=== PATIENT | male | born 1960 | race Caucasian/White ===

== ENCOUNTER 2017-02-19 21:15 | Emergency (ER) | payer OTHER ==
[2017-02-19] MEDS ORDERED: Sodium Chloride 0.9% 10 ML Syringe FLUSH PRN (21:22)
[2017-02-19] MEDS ORDERED: Albuterol/Ipratropium 3.0-0.5 MG/3 ML Neb Soln NEB ONE (21:23)
[2017-02-19] MEDS ORDERED: Albuterol 8 GM Inhaler INH ONE (22:55)
[2017-02-19] MEDS ORDERED: Azithromycin 250 MG Tab PO ONE (22:55)
[2017-02-19] MEDS ORDERED: predniSONE 20 MG Tab PO ONE (22:55)
[2017-02-19 23:07] VITALS: BP 133/66
--- NOTE | 2017-02-20 01:32 | ER ---
DATE SEEN: 02/19/2017 REASON FOR VISIT: Difficulty breathing. HISTORY OF PRESENT ILLNESS: This is a 56-year-old male complaining of difficulty breathing for 2 days, started with a cold and sore throat and nasal congestion 2 days ago, and then progressively got worse to the point, where he is unable to breathe. He has a history of COPD, CAD, and hypertension, previously stable. ALLERGIES: Please see the nurse's notes. REVIEW OF SYSTEMS: He complains of neck, back, chest pain, nasal congestion, and some headache. SOCIAL HISTORY: Quit smoking years ago. MEDICATIONS: Please see the nurse's notes. PHYSICAL EXAMINATION: VITAL SIGNS: His oxygenation is 98% on room air. He has a blood pressure of 133/74, temp 99.8. EARS, NOSE, AND THROAT: Negative. HEAD: Normal size. NECK: Supple. CARDIOVASCULAR: Normal. RESPIRATORY SYSTEM: He has use of accessory muscles of the neck and aspiration, and he also has diminished breath sounds on both sides. LABS: Troponin, D-dimer, CBC, basic profile were negative. Chest x-ray was normal. EKG; mild ST elevation in aVL, V2-V6, but not significant. IMPRESSION: Chronic obstructive pulmonary disease exacerbation. TREATMENT: Z-Torrey, prednisone 10 mg p.o. b.i.d., and albuterol to use as needed. I gave him 1 DuoNeb and he states that his symptoms are much better. TIME SEEN: 2255 hours. /[id number] ALESSANDRO/STEPHANIE
--- NOTE | 2017-02-22 11:35 | CR ---
INDICATION: Shortness of breath. CHEST, AP UPRIGHT: COMPARISON: 07/13/2013. Faint nodularity over the costophrenic angle on the right which is seen on the previous examination, likely chronic. Lung lucero show no infiltrates, effusions, or masses identified at this time. The heart is mildly prominent with no pulmonary vascularity prominence. Overall appearance not significantly changed when compared to the previous examination. IMPRESSION: No acute abnormalities identified. MTDD
== END 2017-02-19 23:10 | disposition home or self-care (01) ==
LOC: FB.ED 21:15
DX: J44.1 Chronic obstructive pulmonary disease with (acute) exacerbation (principal)
CPT/HCPCS: 36415; 71010; 80048; 82550; 82553; 83880; 84484; 85025; 85379; 93005; 94664; 99285; A9270; J7620

== ENCOUNTER 2020-06-21 13:48 | Observation (INO) | payer OTHER ==
--- NOTE | 2020-06-21 14:08 | EDM.PDOC ---
ED HPI GENERAL MEDICAL PROBLEM - General Stated Complaint: FELL OFF LADDER Time Seen by Provider: 06/21/20 14:05 Source of Information: Reports: Patient History Limitations: Reports: No Limitations - History of Present Illness INITIAL COMMENTS - FREE TEXT/NARRATIVE: 59-year-old male who reports he was about 5 or 6 feet up on a ladder and was putting something up and the ladder came out from under him and he fell on his right side. He did not hit his head. There was no loss of consciousness. He did try to catch himself with his hand and he has injuries to this area. He also has pain along his entire right lateral chest and flank area. He also has some right upper abdominal discomfort as well. The pain is sharp and stabbing type pain and with movement it goes up to a 10/10. The pain does not radiate. It is worse with deep breathing as well. He states that he feels somewhat short of breath but he is speaking normally and does not appear to be in any overt respiratory distress. He has no posterior neck pain he does have some pain along his right thoracic back. He has scrapes to his left hand and a scrape over his right anterior trunk this occurred approximately 1:30 PM today. He presents to the emergency department via private vehicle. There are no other associated signs or symptoms. There are no other modifying factors. Onset: Today (1:30 PM) Duration: Constant Location: Reports: Chest, Abdomen, Back, Upper Extremity, Left (Left hand and thumb) Quality: Reports: Sharp, Throbbing Severity: Moderate (to severe) Improves with: Reports: Immobilization, Rest Worsens with: Reports: Breathing, Other (Palpation), Movement Context: Reports: Trauma Associated Symptoms: Reports: No Other Symptoms Treatments INBOUND CALL CENTER REPRESENTATIVE: Reports: Other (see below) (Nothing.) R lateral ribs, L thumb Pain Score (Numeric/FACES): 8 - Related Data Allergies Allergy/AdvReac Type Severity Reaction Status Date / Time budesonide Allergy Rash Verified 06/21/20 14:36 lisinopril Allergy Rash Verified 06/21/20 14:36 Penicillins Allergy Chest Verified 06/21/20 14:36 Presssure Home Meds: Home Meds Aspirin [[place] Aspirin] 81 mg PO DAILY 07/13/13 [History] Metoprolol Tartrate 25 mg PO BID 10/15/14 [History] Acetaminophen [Tylenol Extra Strength] 1,000 mg PO QID PRN 09/11/18 [History] metFORMIN [Glucophage] 500 mg PO BID 09/11/18 [History] Ipratropium/Albuterol Sulfate [Combivent Respimat Inhal [place]] 4 gm IH QID PRN #1 aer.w.adap 09/13/18 [Rx] Isosorbide Mononitrate [Imdur] 30 mg DAILY 06/21/20 [History] Rosuvastatin [Crestor] 40 mg PO DAILY 06/21/20 [History] Past Medical History Cardiovascular History: Reports: Heart Murmur, High Cholesterol, Hypertension, [place], Stents Respiratory History: Reports: COPD, Pneumonia, Recurrent Musculoskeletal History: Reports: Arthritis, Back Pain, Chronic, Gout Neurological History: Reports: Migraines Psychiatric History: Reports: ADHD Endocrine/Metabolic History: Reports: Diabetes, Type II - Infectious Disease History Infectious Disease History: Reports: Chicken Pox - Past Surgical History HEENT Surgical History: Reports: Oral Surgery Cardiovascular Surgical History: Reports: Coronary Artery Stent, Percutaneous Transluminal Angioplasty GI Surgical History: Reports: Colonoscopy Musculoskeletal Surgical History: Reports: Arthroscopic Knee (Right knee), Shoulder Surgery (Bilateral) Social & Family History - Tobacco Use Tobacco Use Status *Q: Former Tobacco User (Quit in 2002) - Caffeine Use Caffeine Use: Reports: Coffee, Soda - Living Situation & Occupation 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[employer]) ED ROS GENERAL - Review of Systems Review Of Systems: See Below Constitutional: Reports: No Symptoms HEENT: Reports: No Symptoms Respiratory: Reports: Shortness of Breath, Pleuritic Chest Pain Cardiovascular: Reports: Chest Pain (Right sided) GI/Abdominal: Reports: Abdominal Pain (Right upper quadrant and flank) : Reports: No Symptoms Musculoskeletal: Reports: Hand Pain (Left thumb and hand pain) Skin: Reports: Wound (Abrasions on left hand) Neurological: Reports: No Symptoms Hematologic/Lymphatic: Reports: No Symptoms Immunologic: Reports: Other (Last tetanus immunization was greater than 5 years ago. He will be given a Tdap immunization today.) ED EXAM, GENERAL - Physical Exam Exam: See Below Exam Limited By: No Limitations General Appearance: Alert, WD/WN, Moderate Distress Eye Exam: Bilateral Eye: EOMI, Normal Inspection, PERRL Ears: Normal External Exam, Hearing Grossly Normal Ear Exam: Bilateral Ear: Auricle Normal Nose: Normal Inspection, Normal Mucosa, No Blood Throat/Mouth: Normal Voice, No Airway Compromise Head: Atraumatic, Normocephalic Neck: Normal Inspection, Supple, Non-Tender, Full Range of Motion Respiratory/Chest: No Respiratory Distress, Lungs Clear, Normal Breath Sounds, No Accessory Muscle Use, Other (Pain along right lateral chest. No crepitus. No subcutaneous emphysema.) Cardiovascular: Normal Peripheral Pulses, No Murmur Peripheral Pulses: 2+: Radial (L), Radial (R), Dorsalis Pedis (L), Dorsalis Pedis (R) GI/Abdominal: Normal Bowel Sounds, Soft, No Mass, Tender (And right upper quadrant and flank along the costal margin.), Other (Abrasion on the right upper quadrant area abdominal wall) Back Exam: Paraspinal Tenderness (On the right thoracic area). No: Vertebral Tenderness Extremities: No Pedal Edema, Normal Capillary Refill, Other (Tenderness over the left thumb and radial hand with no deformity noted. There are abrasions to the middle finger and thumb.) Neurological: Alert, Oriented, CN II-XII Intact, Normal Cognition, No Motor/Sensory Deficits Psychiatric: Normal Affect Skin Exam: Warm, Dry, Normal Color, No Rash, Wound/Incision (Abrasions as above on left hand and abdominal wall.) #1 Interpretation EKG Date: 06/21/20 Time: 14:54 Rhythm: NSR Rate (Beats/Min): 64 Commerce: LAD-Left Commerce Deviation P-Wave: Present QRS: Normal ST-T: Other (Early repolarization) QT: Normal Comparison: NA - No Prior EKG (No change from EKG performed on 02/19/2017.) Course - Vital Signs Last Recorded V/S: Last Vital Signs Temp 36.5 C 06/21/20 13:48 Pulse 78 06/21/20 13:48 Resp 20 06/21/20 13:48 BP 139/68 06/21/20 13:48 Pulse Ox 97 06/21/20 13:48 - Orders/Labs/Meds Orders: Active Orders 24 hr Category Date Time Status Admission Status [Patient Status] [ADT] Routine ADT 06/21/20 17:06 Active Cardiac Monitoring [RC] .As Directed Care 06/21/20 17:06 Active EKG Documentation Completion [RC] ASDIRECTED Care 06/21/20 14:30 Active Vaccines to be Administered [RC] PER UNIT ROUTINE Care 06/21/20 14:25 Active Chest 1V Frontal [CR] Stat Exams 06/21/20 14:20 Taken Chest Abdomen Pelvis w Cont [CT] Stat Exams 06/21/20 14:34 Taken Hand Comp Min 3V Lt [CR] Stat Exams 06/21/20 14:20 Taken CORONAVIRUS COVID-19 TREVOR [MOLEC] Stat Lab 06/21/20 16:10 Received PATIENT RETYPE [BBK] Routine Lab 06/21/20 13:55 Results TYPE AND SCREEN [BBK] Routine Lab 06/21/20 13:55 Results Sodium Chloride 0.9% [Normal Saline] 1,000 ml Med 06/21/20 14:30 Active IV ASDIRECTED Sodium Chloride 0.9% [Saline Flush] Med 06/21/20 14:20 Active 10 ml FLUSH ASDIRECTED PRN Peripheral IV Insertion Adult [OM.PC] Routine Oth 06/21/20 14:20 Ordered EKG 12 Lead [EK] Routine Ther 06/21/20 14:30 Ordered Medication Orders Sodium Chloride (Normal Saline) 1,000 mls @ 150 mls/hr IV ASDIRECTED MARVIN Last Admin: 06/21/20 15:20 Dose: 150 mls/hr Documented by: WM Sodium Chloride (Saline Flush) 10 ml FLUSH ASDIRECTED PRN PRN Reason: Keep Vein Open Last Admin: 06/21/20 14:20 Dose: 10 ml Documented by: WM Labs: Laboratory Tests 06/21/20 06/21/20 06/21/20 Range/Units 13:55 13:55 13:55 WBC 6.3 (3.2-10.1) x10-3/uL RBC 4.63 (3.90-5.90) x10(6)uL Hgb 13.4 (12.9-17.7) g/dL Hct 38.9 (38.3-50.1) % MCV 84.1 (80.8-98.7) fL MCH 29.0 (27.0-33.3) pg MCHC 34.5 (28.7-35.3) g/dL RDW 13.8 (12.4-15.0) % Plt Count 216 (117-477) x10(3)uL MPV 8.5 (6.7-11.0) fL Neut % (Auto) 57.8 (40.3-71.8) % Lymph % (Auto) 30.6 (15.8-45.3) % [place] % (Auto) 6.4 (5.5-15.2) % Eos % (Auto) 4.5 (0.1-6.8) % Baso % (Auto) 0.7 (0.3-3.8) % Neut # (Auto) 3.6 (1.7-6.9) x10-3/uL Lymph # (Auto) 1.9 (0.5-4.5) x10-3/uL [place] # (Auto) 0.4 (0.0-1.2) x10-3/uL Eos # (Auto) 0.3 (0.0-0.6) x10-3/uL Baso # (Auto) 0.0 (0.0-0.3) x10-3/uL Sodium (135-145) mmol/L Potassium (3.5-5.3) mmol/L Chloride (100-110) mmol/L Carbon Dioxide (21-32) mmol/L BUN (7-18) mg/dL Creatinine (0.70-1.30) mg/dL Est Cr Clr Drug Dosing Estimated GFR (MDRD) (>60) BUN/Creatinine Ratio (9-20) Glucose (80-116) mg/dL Calcium (8.6-10.2) mg/dL Total Bilirubin (0.1-1.3) mg/dL AST (5-25) IU/L ALT (12-36) U/L Alkaline Phosphatase (56-112) IU/L Total Protein (6.0-8.0) g/dL Albumin (3.5-5.2) g/dL Globulin g/dL Albumin/Globulin Ratio Lipase (73-393) U/L Urine Color (YELLOW) Urine Appearance (CLEAR) Urine pH (5.0-6.5) Ur Specific Archie (1.010-1.025) Urine Protein (NEGATIVE) mg/dL Urine Glucose (UA) (NORMAL) mg/dL Urine Ketones (NEGATIVE) mg/dL Urine Occult Blood (NEGATIVE) Urine Nitrite (NEGATIVE) Urine Bilirubin (NEGATIVE) Urine Urobilinogen (NEGATIVE) mg/dL Ur Leukocyte Esterase (NEGATIVE) Urine RBC (0-5) Urine WBC (0-5) Ur Squamous Epith Cells (NS,R,O) Urine Bacteria (NS) Ethyl Alcohol < 0.03 (<0.03) % Blood Type B POSITIVE Gel Antibody Screen Negative 06/21/20 06/21/20 06/21/20 Range/Units 13:55 13:55 16:45 WBC (3.2-10.1) x10-3/uL RBC (3.90-5.90) x10(6)uL Hgb (12.9-17.7) g/dL Hct (38.3-50.1) % MCV (80.8-98.7) fL MCH (27.0-33.3) pg MCHC (28.7-35.3) g/dL RDW (12.4-15.0) % Plt Count (117-477) x10(3)uL MPV (6.7-11.0) fL Neut % (Auto) (40.3-71.8) % Lymph % (Auto) (15.8-45.3) % [place] % (Auto) (5.5-15.2) % Eos % (Auto) (0.1-6.8) % Baso % (Auto) (0.3-3.8) % Neut # (Auto) (1.7-6.9) x10-3/uL Lymph # (Auto) (0.5-4.5) x10-3/uL [place] # (Auto) (0.0-1.2) x10-3/uL Eos # (Auto) (0.0-0.6) x10-3/uL Baso # (Auto) (0.0-0.3) x10-3/uL Sodium 138 (135-145) mmol/L Potassium 3.7 (3.5-5.3) mmol/L Chloride 102 (100-110) mmol/L Carbon Dioxide 26 (21-32) mmol/L BUN 10 (7-18) mg/dL Creatinine 0.9 (0.70-1.30) mg/dL Est Cr Clr Drug Dosing TNP Estimated GFR (MDRD) > 60 (>60) BUN/Creatinine Ratio 11.1 (9-20) Glucose 231 H (80-116) mg/dL Calcium 8.4 L (8.6-10.2) mg/dL Total Bilirubin 1.1 (0.1-1.3) mg/dL AST 36 H D (5-25) IU/L ALT 29 D (12-36) U/L Alkaline Phosphatase 79 (56-112) IU/L Total Protein 6.6 (6.0-8.0) g/dL Albumin 3.6 (3.5-5.2) g/dL Globulin 3.0 g/dL Albumin/Globulin Ratio 1.2 Lipase 222 (73-393) U/L Urine Color Yellow (YELLOW) Urine Appearance Clear (CLEAR) Urine pH 5.0 (5.0-6.5) Ur Specific Archie 1.015 (1.010-1.025) Urine Protein Negative (NEGATIVE) mg/dL Urine Glucose (UA) 50 H (NORMAL) mg/dL Urine Ketones Negative (NEGATIVE) mg/dL Urine Occult Blood Negative (NEGATIVE) Urine Nitrite Negative (NEGATIVE) Urine Bilirubin Negative (NEGATIVE) Urine Urobilinogen Normal (NEGATIVE) mg/dL Ur Leukocyte Esterase Negative (NEGATIVE) Urine RBC Not seen (0-5) Urine WBC 0-5 (0-5) Ur Squamous Epith Cells Few H (NS,R,O) Urine Bacteria Rare H (NS) Ethyl Alcohol (<0.03) % Blood Type Gel Antibody Screen Meds: Medications Generic Name Dose Route Start Last Admin Trade Name Freq PRN Reason Stop Dose Admin Sodium Chloride 1,000 mls @ 150 mls/hr 06/21/20 14:30 06/21/20 15:20 Normal Saline IV 150 mls/hr ASDIRECTED MARVIN Administration Sodium Chloride 10 ml 06/21/20 14:20 06/21/20 14:20 Saline Flush FLUSH 10 ml ASDIRECTED PRN Administration Keep Vein Open Discontinued Medications Generic Name Dose Route Start Last Admin Trade Name Freq PRN Reason Stop Dose Admin Diazepam 5 mg 06/21/20 15:18 06/21/20 15:32 Valium IVPUSH 06/21/20 15:19 5 mg ONETIME ONE Administration Diphtheria/Tetanus/Acell Pertussis 0.5 ml 06/21/20 14:24 06/21/20 14:42 Boostrix IM 06/21/20 14:25 0.5 ml .ONCE ONE Administration Hydromorphone HCl 1 mg 06/21/20 14:24 06/21/20 15:30 Dilaudid IVPUSH 06/21/20 14:25 1 mg ONETIME ONE Administration Hydromorphone HCl 1 mg 06/21/20 15:18 06/21/20 15:31 Dilaudid IVPUSH 06/21/20 15:19 1 mg ONETIME ONE Administration Sodium Chloride 500 mls @ 999 mls/hr 06/21/20 14:24 06/21/20 14:30 Normal Saline IV 06/21/20 14:54 999 mls/hr .BOLUS ONE Administration Iopamidol 100 ml 06/21/20 14:50 06/21/20 15:32 Isovue-370 (76%) IV 06/21/20 14:51 100 ml . DIRECTED ONE Administration Ketorolac Tromethamine 30 mg 06/21/20 16:06 06/21/20 16:19 Toradol IVPUSH 06/21/20 16:07 30 mg ONETIME ONE Administration Ondansetron HCl 4 mg 06/21/20 14:24 06/21/20 14:30 Zofran IVPUSH 06/21/20 14:25 4 mg ONETIME ONE Administration - Radiology Interpretation Free Text/Narrative:: Portable chest x-ray shows no acute disease per the radiologist. X-ray of left hand shows no acute fracture per the radiologist. CT scan of the chest, abdomen and pelvis shows displaced fractures of the right anterolateral first, third, fourth and seventh ribs and right posterior second third and fourth ribs. There were also other possible nondisplaced fractures but motion limited evaluation of this. He has a tiny right-sided pneumothorax and a pleural fluid. He also has a right upper lobe pulmonary contusion. This is all per the radiologist. - Re-Assessments/Exams Free Text/Narrative Re-Assessment/Exam: 06/21/20 16:05: The patient still has pain along his right side but it is improved after the pain medication. I will also order Toradol 30 mg IV. The portal chest x-ray did not show any pneumothorax. The left hand x-ray did not show any fracture. The patient's blood tests are all reassuringly normal. We have yet to get a urine. He has remained hemodynamically and respiratory stable. I am awaiting the report of the CT scan of his chest, abdomen and pelvis. We will continue close monitoring. 06/21/20 16:30: CT scan of the chest, abdomen and pelvis shows multiple right- sided rib fractures on 2 levels with flail segment. He also has a small pn eumothorax and a right upper lobe pulmonary contusion. The abdomen and pelvis was read as negative. His O2 saturations on room air are 96-97%. His blood pressure and pulse have remained stable. He remains neurologically intact. He is awake, alert and appropriate. The patient will need admission for IV pain control and close monitoring of his respiratory status. I will call and discuss the patient's case with Dr. Barnett, surgeon operational risk analyst. 06/21/20 16:40: Discussed the patient's case with Dr. Barnett and he agrees to admit the patient. He will be in to see the patient. I discussed all this with the patient and he is in agreement with the plan for admission. It is unclear at this point if the patient will need a greater then 2 midnight hospital stay to complete this plan of care. Therefore, he is being placed on observation status. Departure - Departure Time of Disposition: 17:05 Disposition: Refer to Observation Condition: Fair (Stable) Clinical Impression: Multiple rib fractures involving four or more ribs, Flail chest, initial encounter for closed fracture, Contusion of left hand, initial encounter Fall from ladder Qualifiers: Encounter type: initial encounter Qualified Code(s): W11.XXXA - Fall on and from ladder, initial encounter Right pulmonary contusion Qualifiers: Encounter type: initial encounter Qualified Code(s): S27.321A - Contusion of lung, unilateral, initial encounter Left thumb sprain Qualifiers: Encounter type: initial encounter Sprain of finger site: metacarpophalangeal joint Qualified Code(s): S63.642A - Sprain of metacarpophalangeal joint of left thumb, initial encounter Abrasion of left hand and fingers Qualifiers: Encounter type: initial encounter Qualified Code(s): S60.512A - Abrasion of left hand, initial encounter - Discharge Information Sepsis Event Note (ED) - Focused Exam Vital Signs: Vital Signs Temp Pulse Resp BP Pulse Ox 06/21/20 13:48 36.5 C 78 20 139/68 97 - My Orders Last 24 Hours: My Active Orders 06/21/20 13:55 PATIENT RETYPE [BBK] Routine TYPE AND SCREEN [BBK] Routine 06/21/20 14:20 Chest 1V Frontal [CR] Stat Hand Comp Min 3V Lt [CR] Stat Sodium Chloride 0.9% [Saline Flush] 10 ml FLUSH ASDIRECTED PRN Peripheral IV Insertion Adult [OM.PC] Routine 06/21/20 14:25 Vaccines to be Administered [RC] PER UNIT ROUTINE 06/21/20 14:30 EKG Documentation Completion [RC] ASDIRECTED Sodium Chloride 0.9% [Normal Saline] 1,000 ml IV ASDIRECTED EKG 12 Lead [EK] Routine 06/21/20 14:34 Chest Abdomen Pelvis w Cont [CT] Stat 06/21/20 16:10 CORONAVIRUS COVID-19 TREVOR [MOLEC] Stat 06/21/20 17:06 Admission Status [Patient Status] [ADT] Routine Cardiac Monitoring [RC] .As Directed - Assessment/Plan Last 24 Hours: My Active Orders 06/21/20 13:55 PATIENT RETYPE [BBK] Routine TYPE AND SCREEN [BBK] Routine 06/21/20 14:20 Chest 1V Frontal [CR] Stat Hand Comp Min 3V Lt [CR] Stat Sodium Chloride 0.9% [Saline Flush] 10 ml FLUSH ASDIRECTED PRN Peripheral IV Insertion Adult [OM.PC] Routine 06/21/20 14:25 Vaccines to be Administered [RC] PER UNIT ROUTINE 06/21/20 14:30 EKG Documentation Completion [RC] ASDIRECTED Sodium Chloride 0.9% [Normal Saline] 1,000 ml IV ASDIRECTED EKG 12 Lead [EK] Routine 06/21/20 14:34 Chest Abdomen Pelvis w Cont [CT] Stat 06/21/20 16:10 CORONAVIRUS COVID-19 TREVOR [MOLEC] Stat 06/21/20 17:06 Admission Status [Patient Status] [ADT] Routine Cardiac Monitoring [RC] .As Directed
[2020-06-21] MEDS ORDERED: Sodium Chloride 0.9% 10 ML Syringe FLUSH PRN (14:20)
[2020-06-21] MEDS ORDERED: Ondansetron 4 MG/2 ML SDV IVPUSH ONE (14:24)
[2020-06-21] MEDS ORDERED: Diphtheria,Pertussis(Acell),Tetanus Vaccine 0.5 ML Syringe IM ONE (14:24)
[2020-06-21] MEDS ORDERED: Sodium Chloride 0.9% 500 ML IV ONE (14:24)
[2020-06-21] MEDS ORDERED: Sodium Chloride 0.9% 1,000 ML IV SCH (14:30)
[2020-06-21] MEDS: HYDROmorphone 2 MG/ML SDV IVPUSH ONE ×2 (14:35→15:30)
[2020-06-21] MEDS ORDERED: Iopamidol 755 Mg/ML 100 ML Bottle IV ONE (14:50)
[2020-06-21] MEDS ORDERED: HYDROmorphone 2 MG/ML SDV IVPUSH ONE (15:18)
[2020-06-21] MEDS ORDERED: Ketorolac 30 MG/ML SDV IVPUSH ONE (16:06)
[2020-06-21] MEDS ORDERED: HYDROmorphone 2 MG/ML SDV IVPUSH PRN (17:29)
--- NOTE | 2020-06-21 18:22 | PREOP ---
ADMISSION DATE: 06/21/2020 HISTORY: This 59-year-old male is seen in the emergency room at the request of Dr. Shaw. He fell from a ladder approximately 6 feet earlier today, landing on his right side. He is complaining of chest and flank pain and some shortness of breath. He has been thoroughly evaluated in the emergency room over the last couple of hours and has remained stable. There was no head injury or loss of consciousness. The patient was brought to the emergency room by his girlfriend. PAST MEDICAL HISTORY: 1. History of coronary artery disease with stent placement. 2. Hypercholesterolemia. 3. Hypertension. 4. Chronic obstructive pulmonary disease. 5. Arthritis. 6. Migraines. 7. Previous surgeries include coronary artery stenting and shoulder arthroscopy and knee arthroscopy. 8. Type 2 diabetes. MEDICATIONS: Reviewed. ALLERGIES: None. REVIEW OF SYSTEMS: Patient denies head or neck pain. He complains of some right chest pain and no shortness of breath at this time. Denies any abdominal or pelvic pain. Does complain of some right flank and hip pain. He has some left thumb pain from abrasion. Denies any other upper or lower extremity pain. Denies any back pain. Denies any nausea or vomiting. Only had a banana to eat today. PHYSICAL EXAMINATION: GENERAL: Reveals a pleasant male, in no acute distress. VITALS SIGNS: Have been stable throughout. GCS has been 15 throughout. HEAD AND NECK: Normal without any abrasions or contusions. Neck is nontender. Trachea is midline. LUNGS: Clear with equal breath sounds bilaterally. I do not feel any crepitus. He is tender along the right chest. ABDOMEN: Soft, nontender. EXTREMITIES: Upper extremities are normal other than the abrasion on the left thumb. Lower extremities are normal to palpation and inspection. BACK: Normal to inspection and palpation and is nontender in the thoracic and lumbar spine region. LABORATORY DATA: A CT scan of the chest, abdomen, and pelvis are reviewed. He has multiple right rib fractures with pulmonary contusion. I am unable to identify a pneumothorax, although the radiologist says there is a small one on the CT scan. ASSESSMENT: Fall with multiple right rib fractures. PLAN: The patient will be admitted for observation and pain control. I will repeat a chest x-ray in the morning. He will need to be hospitalized for the next day or two until his pain is under adequate control with oral analgesics. /[id number] VENUS/STEPHANIE
[2020-06-21] MEDS ORDERED: Albuterol/Ipratropium 3.0-0.5 MG/3 ML Neb Soln INH PRN (21:00)
[2020-06-21] MEDS: Acetaminophen/HYDROcodone 325-7.5 MG Tab PO PRN (21:25)
[2020-06-21] MEDS: Metoprolol Tartrate 25 MG Tab PO SCH (21:26)
[2020-06-21] MEDS: Ketorolac 30 MG/ML SDV IVPUSH SCH (22:45)
[2020-06-21] MEDS: Sodium Chloride 0.9% 1,000 ML IV SCH (22:53)
[2020-06-22] MEDS: Ketorolac 30 MG/ML SDV IVPUSH SCH ×2 (04:28→10:26)
[2020-06-22] MEDS: Acetaminophen/HYDROcodone 325-7.5 MG Tab PO PRN ×3 (04:29→13:12)
[2020-06-22] MEDS: Metoprolol Tartrate 25 MG Tab PO SCH (08:34)
[2020-06-22 08:36] VITALS: BP 125/75; PULSE 67
[2020-06-22] MEDS: Sodium Chloride 0.9% 1,000 ML IV SCH (08:58)
--- NOTE | 2020-06-22 14:05 | PCM.PN ---
- General Info Date of Service: 06/22/20 Functional Status: Reports: Pain Controlled, Tolerating Diet, Ambulating, Urinating - Review of Systems General: Reports: No Symptoms HEENT: Reports: No Symptoms Pulmonary: Reports: No Symptoms, Pleuritic Chest Pain (with deep breathing) Gastrointestinal: Reports: No Symptoms Genitourinary: Reports: No Symptoms Musculoskeletal: Reports: Shoulder Pain (right with movement) Neurological: Reports: No Symptoms - Patient Data Vitals - Most Recent: Last Vital Signs Temp 98.1 F 06/22/20 08:00 Pulse 67 06/22/20 08:34 Resp 16 06/22/20 08:00 BP 125/75 06/22/20 08:34 Pulse Ox 97 06/22/20 08:00 Weight - Most Recent: 130.776 kg I&O - Last 24 Hours: Intake & Output 06/21/20 06/22/20 06/22/20 22:59 06:59 14:59 Intake Total 520 715 Balance 520 715 Lab Results Last 24 Hours: Laboratory Results - last 24 hr 06/21/20 06/21/20 06/21/20 Range/Units 13:55 13:55 13:55 WBC 6.3 (3.2-10.1) x10-3/uL RBC 4.63 (3.90-5.90) x10(6)uL Hgb 13.4 (12.9-17.7) g/dL Hct 38.9 (38.3-50.1) % MCV 84.1 (80.8-98.7) fL MCH 29.0 (27.0-33.3) pg MCHC 34.5 (28.7-35.3) g/dL RDW 13.8 (12.4-15.0) % Plt Count 216 (117-477) x10(3)uL MPV 8.5 (6.7-11.0) fL Neut % (Auto) 57.8 (40.3-71.8) % Lymph % (Auto) 30.6 (15.8-45.3) % [place] % (Auto) 6.4 (5.5-15.2) % Eos % (Auto) 4.5 (0.1-6.8) % Baso % (Auto) 0.7 (0.3-3.8) % Neut # (Auto) 3.6 (1.7-6.9) x10-3/uL Lymph # (Auto) 1.9 (0.5-4.5) x10-3/uL [place] # (Auto) 0.4 (0.0-1.2) x10-3/uL Eos # (Auto) 0.3 (0.0-0.6) x10-3/uL Baso # (Auto) 0.0 (0.0-0.3) x10-3/uL Sodium (135-145) mmol/L Potassium (3.5-5.3) mmol/L Chloride (100-110) mmol/L Carbon Dioxide (21-32) mmol/L BUN (7-18) mg/dL Creatinine (0.70-1.30) mg/dL Est Cr Clr Drug Dosing Estimated GFR (MDRD) (>60) BUN/Creatinine Ratio (9-20) Glucose (80-116) mg/dL POC Glucose (74-100) mg/dL Calcium (8.6-10.2) mg/dL Total Bilirubin (0.1-1.3) mg/dL AST (5-25) IU/L ALT (12-36) U/L Alkaline Phosphatase (56-112) IU/L Total Protein (6.0-8.0) g/dL Albumin (3.5-5.2) g/dL Globulin g/dL Albumin/Globulin Ratio Lipase (73-393) U/L Urine Color (YELLOW) Urine Appearance (CLEAR) Urine pH (5.0-6.5) Ur Specific [place] (1.010-1.025) Urine Protein (NEGATIVE) mg/dL Urine Glucose (UA) (NORMAL) mg/dL Urine Ketones (NEGATIVE) mg/dL Urine Occult Blood (NEGATIVE) Urine Nitrite (NEGATIVE) Urine Bilirubin (NEGATIVE) Urine Urobilinogen (NEGATIVE) mg/dL Ur Leukocyte Esterase (NEGATIVE) Urine RBC (0-5) Urine WBC (0-5) Ur Squamous Epith Cells (NS,R,O) Urine Bacteria (NS) Ethyl Alcohol < 0.03 (<0.03) % SARS-CoV-2 RNA (TREVOR) (NEGATIVE) Blood Type B POSITIVE Gel Antibody Screen Negative 06/21/20 06/21/20 06/21/20 Range/Units 13:55 13:55 16:10 WBC (3.2-10.1) x10-3/uL RBC (3.90-5.90) x10(6)uL Hgb (12.9-17.7) g/dL Hct (38.3-50.1) % MCV (80.8-98.7) fL MCH (27.0-33.3) pg MCHC (28.7-35.3) g/dL RDW (12.4-15.0) % Plt Count (117-477) x10(3)uL MPV (6.7-11.0) fL Neut % (Auto) (40.3-71.8) % Lymph % (Auto) (15.8-45.3) % [place] % (Auto) (5.5-15.2) % Eos % (Auto) (0.1-6.8) % Baso % (Auto) (0.3-3.8) % Neut # (Auto) (1.7-6.9) x10-3/uL Lymph # (Auto) (0.5-4.5) x10-3/uL [place] # (Auto) (0.0-1.2) x10-3/uL Eos # (Auto) (0.0-0.6) x10-3/uL Baso # (Auto) (0.0-0.3) x10-3/uL Sodium 138 (135-145) mmol/L Potassium 3.7 (3.5-5.3) mmol/L Chloride 102 (100-110) mmol/L Carbon Dioxide 26 (21-32) mmol/L BUN 10 (7-18) mg/dL Creatinine 0.9 (0.70-1.30) mg/dL Est Cr Clr Drug Dosing TNP Estimated GFR (MDRD) > 60 (>60) BUN/Creatinine Ratio 11.1 (9-20) Glucose 231 H (80-116) mg/dL POC Glucose (74-100) mg/dL Calcium 8.4 L (8.6-10.2) mg/dL Total Bilirubin 1.1 (0.1-1.3) mg/dL AST 36 H D (5-25) IU/L ALT 29 D (12-36) U/L Alkaline Phosphatase 79 (56-112) IU/L Total Protein 6.6 (6.0-8.0) g/dL Albumin 3.6 (3.5-5.2) g/dL Globulin 3.0 g/dL Albumin/Globulin Ratio 1.2 Lipase 222 (73-393) U/L Urine Color (YELLOW) Urine Appearance (CLEAR) Urine pH (5.0-6.5) Ur Specific [place] (1.010-1.025) Urine Protein (NEGATIVE) mg/dL Urine Glucose (UA) (NORMAL) mg/dL Urine Ketones (NEGATIVE) mg/dL Urine Occult Blood (NEGATIVE) Urine Nitrite (NEGATIVE) Urine Bilirubin (NEGATIVE) Urine Urobilinogen (NEGATIVE) mg/dL Ur Leukocyte Esterase (NEGATIVE) Urine RBC (0-5) Urine WBC (0-5) Ur Squamous Epith Cells (NS,R,O) Urine Bacteria (NS) Ethyl Alcohol (<0.03) % SARS-CoV-2 RNA (TREVOR) Negative (NEGATIVE) Blood Type Gel Antibody Screen 06/21/20 06/22/20 06/22/20 Range/Units 16:45 06:18 06:20 WBC 8.3 (3.2-10.1) x10-3/uL RBC 4.47 (3.90-5.90) x10(6)uL Hgb 12.5 L (12.9-17.7) g/dL Hct 38.3 (38.3-50.1) % MCV 85.7 (80.8-98.7) fL MCH 28.1 (27.0-33.3) pg MCHC 32.7 (28.7-35.3) g/dL RDW 13.6 (12.4-15.0) % Plt Count 167 (117-477) x10(3)uL MPV (6.7-11.0) fL Neut % (Auto) (40.3-71.8) % Lymph % (Auto) (15.8-45.3) % [place] % (Auto) (5.5-15.2) % Eos % (Auto) (0.1-6.8) % Baso % (Auto) (0.3-3.8) % Neut # (Auto) (1.7-6.9) x10-3/uL Lymph # (Auto) (0.5-4.5) x10-3/uL [place] # (Auto) (0.0-1.2) x10-3/uL Eos # (Auto) (0.0-0.6) x10-3/uL Baso # (Auto) (0.0-0.3) x10-3/uL Sodium (135-145) mmol/L Potassium (3.5-5.3) mmol/L Chloride (100-110) mmol/L Carbon Dioxide (21-32) mmol/L BUN (7-18) mg/dL Creatinine (0.70-1.30) mg/dL Est Cr Clr Drug Dosing Estimated GFR (MDRD) (>60) BUN/Creatinine Ratio (9-20) Glucose (80-116) mg/dL POC Glucose 160 H (74-100) mg/dL Calcium (8.6-10.2) mg/dL Total Bilirubin (0.1-1.3) mg/dL AST (5-25) IU/L ALT (12-36) U/L Alkaline Phosphatase (56-112) IU/L Total Protein (6.0-8.0) g/dL Albumin (3.5-5.2) g/dL Globulin g/dL Albumin/Globulin Ratio Lipase (73-393) U/L Urine Color Yellow (YELLOW) Urine Appearance Clear (CLEAR) Urine pH 5.0 (5.0-6.5) Ur Specific [place] 1.015 (1.010-1.025) Urine Protein Negative (NEGATIVE) mg/dL Urine Glucose (UA) 50 H (NORMAL) mg/dL Urine Ketones Negative (NEGATIVE) mg/dL Urine Occult Blood Negative (NEGATIVE) Urine Nitrite Negative (NEGATIVE) Urine Bilirubin Negative (NEGATIVE) Urine Urobilinogen Normal (NEGATIVE) mg/dL Ur Leukocyte Esterase Negative (NEGATIVE) Urine RBC Not seen (0-5) Urine WBC 0-5 (0-5) Ur Squamous Epith Cells Few H (NS,R,O) Urine Bacteria Rare H (NS) Ethyl Alcohol (<0.03) % SARS-CoV-2 RNA (TREVOR) (NEGATIVE) Blood Type Gel Antibody Screen Med Orders - Current: Current Medications Hydrocodone Bitart/Acetaminophen ([place] 325-7.5 Mg) 1 tab PO Q4H PRN PRN Reason: Pain (moderate 4-6) Last Admin: 06/22/20 13:12 Dose: 1 tab Documented by: Albuterol/Ipratropium (Duoneb 3.0-0.5 Mg/3 Ml) 3 ml INH QID PRN PRN Reason: sob Hydromorphone HCl (Dilaudid) 1 mg IVPUSH Q1H PRN PRN Reason: Pain (moderate 4-6) Sodium Chloride (Normal Saline) 1,000 mls @ 100 mls/hr IV ASDIRECTED [facility] Last Admin: 06/22/20 08:58 Dose: 100 mls/hr Documented by: Ketorolac Tromethamine (Toradol) 30 mg IVPUSH Q6H [facility] Stop: 06/26/20 22:01 Last Admin: 06/22/20 10:26 Dose: 30 mg Documented by: Metoprolol Tartrate (Lopressor) 25 mg PO BID [facility] Last Admin: 06/22/20 08:34 Dose: 25 mg Documented by: Sodium Chloride (Saline Flush) 10 ml FLUSH ASDIRECTED PRN PRN Reason: Keep Vein Open Last Admin: 06/21/20 14:20 Dose: 10 ml Documented by: Discontinued Medications Diazepam (Valium) 5 mg IVPUSH ONETIME ONE Stop: 06/21/20 15:19 Last Admin: 06/21/20 15:32 Dose: 5 mg Documented by: Diphtheria/Tetanus/Acell Pertussis (Boostrix) 0.5 ml IM .ONCE ONE Stop: 06/21/20 14:25 Last Admin: 06/21/20 14:42 Dose: 0.5 ml Documented by: Hydromorphone HCl (Dilaudid) 1 mg IVPUSH ONETIME ONE Stop: 06/21/20 14:25 Last Admin: 06/21/20 15:30 Dose: 1 mg Documented by: Hydromorphone HCl (Dilaudid) 1 mg IVPUSH ONETIME ONE Stop: 06/21/20 15:19 Last Admin: 06/21/20 15:31 Dose: 1 mg Documented by: Sodium Chloride (Normal Saline) 500 mls @ 999 mls/hr IV .BOLUS ONE Stop: 06/21/20 14:54 Last Admin: 06/21/20 14:30 Dose: 999 mls/hr Documented by: Sodium Chloride (Normal Saline) 1,000 mls @ 150 mls/hr IV ASDIRECTED [facility] Last Admin: 06/21/20 15:20 Dose: 150 mls/hr Documented by: Iopamidol (Isovue-370 (76%)) 100 ml IV . DIRECTED ONE Stop: 06/21/20 14:51 Last Admin: 06/21/20 15:32 Dose: 100 ml Documented by: Ketorolac Tromethamine (Toradol) 30 mg IVPUSH ONETIME ONE Stop: 06/21/20 16:07 Last Admin: 06/21/20 16:19 Dose: 30 mg Documented by: Ondansetron HCl (Zofran) 4 mg IVPUSH ONETIME ONE Stop: 06/21/20 14:25 Last Admin: 06/21/20 14:30 Dose: 4 mg Documented by: - Exam General: Alert, Oriented Lungs: Clear to Auscultation, Normal Respiratory Effort Cardiovascular: Regular Rate, Regular Rhythm GI/Abdominal Exam: Normal Bowel Sounds, Soft, Non-Tender Neurological: No New Focal Deficit Sepsis Event Note - Evaluation Sepsis Screening Result: No Definite Risk - Focused Exam Vital Signs: Vital Signs Temp Pulse Pulse Resp BP BP Pulse Ox 06/22/20 08:34 67 125/75 06/22/20 08:00 98.1 F 67 16 125/75 97 - Problem List Review Problem List Initiated/Reviewed/Updated: Yes - My Orders Last 24 Hours: My Active Orders 06/21/20 Dinner Full Liquid Diet [DIET] 06/21/20 17:29 Patient Status [ADT] Routine Ambulate [RC] PER UNIT ROUTINE Blood Glucose Check, Bedside [RC] TIDAC Oxygen Therapy [RC] PRN RT Incentive Spirometry [RC] Q2HWA Up With Assistance [RC] ASDIRECTED Vital Signs [RC] 08,16,00 Acetaminophen/HYDROcodone [[place] 325-7.5 MG] 1 tab PO Q4H PRN HYDROmorphone [Dilaudid] 1 mg IVPUSH Q1H PRN Sequential Compression Device [OM.PC] Routine Resuscitation Status Routine 06/21/20 17:31 Pulse Oximetry [RC] CONTINUOUS 06/21/20 17:33 Antiembolic Devices [RC] .Routine VTE/DVT Education [RC] Click to Edit DVT/VTE Prophylaxis Reflex [OM.PC] Per Unit Routine 06/21/20 17:45 Sodium Chloride 0.9% [Normal Saline] 1,000 ml IV ASDIRECTED 06/21/20 21:00 Albuterol/Ipratropium [DuoNeb 3.0-0.5 MG/3 ML] 3 ml INH QID PRN Metoprolol Tartrate [Lopressor] 25 mg PO BID 06/21/20 22:00 Ketorolac [Toradol] 30 mg IVPUSH Q6H 06/22/20 Breakfast Regular Diet [DIET] 06/22/20 09:00 CXR [Chest 2V] [CR] Routine - Assessment Assessment:: A) Doing well, pain controled with Toradol and Hydrocodone CXR no PTX P) Will discharge to home, f/u with PCP at end of week
--- NOTE | 2020-06-23 12:14 | CR ---
INDICATION: Followup for possible rib fractures, fell off ladder circa 06/21/20 with right chest pain. CHEST TWO VIEWS: PA and two lateral views of the chest were obtained 06/22/20 and compared with 06/21/20 and 09/12/18. The heart appears to be within normal limits in size. Overlying EKG leads are noted. Calcification again noted at the right lung base seen previous, likely post granulomatous. No definite contusion, pneumonia - infiltrate, effusion or pneumothorax was identified. There does appear to be some pleural thickening at the right apex, probably emphasized by poor inspiration. There is a transverse fracture with slight offset noted at the 4th right rib posteriorly which was present, but not as well seen on the previous examination of 06/21/20 and not present on the previous examination of 09/12/18, and appears to be acute. IMPRESSION: 1. Fracture of the right 4th rib posteriorly with slight offset. 2. No other definite acute process identified, although the apical pleural thickening seen at this time could represent a mild degree of hemothorax since there is blunting of the right posterior sulcus also noted, compatible with a minimal hemothorax. Also noted are some minimal heavy markings which may be new in the right mid lung field raising question of a minimal pulmonary contusion and/or atelectasis in that area. MTDD
== END 2020-06-22 14:37 | disposition home or self-care (01) ==
LOC: FB.ED 13:48 → INTOOBSV 17:11 → FB.MS 17:11
PROVIDERS: ADMIT Surgery; ATTEND Surgery
DX: S22.41XA Multiple fractures of ribs, right side, initial encounter for closed fracture (principal); I25.10 Atherosclerotic heart disease of native coronary artery without angina pectoris; E78.00 Pure hypercholesterolemia, unspecified; I10 Essential (primary) hypertension; J44.9 Chronic obstructive pulmonary disease, unspecified; G43.909 Migraine, unspecified, not intractable, without status migrainosus; E11.9 Type 2 diabetes mellitus without complications; I25.2 Old myocardial infarction; S63.642A Sprain of metacarpophalangeal joint of left thumb, initial encounter; Z20.828 Contact with and (suspected) exposure to other viral communicable diseases; Z95.5 Presence of coronary angioplasty implant and graft; W11.XXXA Fall on and from ladder, initial encounter; Z88.0 Allergy status to penicillin; Z88.8 Allergy status to other drugs, medicaments and biological substances; Z79.82 Long term (current) use of aspirin; Z79.899 Other long term (current) drug therapy; Z87.891 Personal history of nicotine dependence
CPT/HCPCS: 36415; 71045; 71046; 71260; 73130-LT; 74177; 80053; 80307; 81001; 82962; 83690; 85025; 85027; 86850; 86900; 86901; 90471; 90715; 93005; 94150; 96374; 96375; 96376; 99285-25; A9270-GY; J1170; J1885; J2405; J3360; J7030; J7040; Q9967; U0002

== ENCOUNTER 2020-09-01 06:49 | Day surgery (SDC) | payer OTHER ==
[2020-09-01] MEDS ORDERED: Propofol 200 MG/20 ML SDV IV ONE (06:50)
[2020-09-01] MEDS ORDERED: Midazolam 1 MG/ML 2 ML SDV IV ONE (06:50)
[2020-09-01] MEDS ORDERED: Lactated Ringers 1,000 ML IV SCH (07:15)
[2020-09-01] MEDS ORDERED: Sodium Chloride 0.9% 10 ML Syringe FLUSH PRN (07:15)
--- NOTE | 2020-09-01 09:05 | PCM.OPNOTE ---
- General Post-Op/Procedure Note Date of Surgery/Procedure: 09/01/20 Operative Procedure(s): c scope with cold forceps and hot loop snare bx Findings: ascending colon polyp x2 sigmoid colon polyp x1 Pre Op Diagnosis: personal hx of colon polyps Post-Op Diagnosis: ascending colon polyp x2. sigmoid colon polyp x1 Anesthesia Technique: MAC Primary Surgeon: Michael Watson Anesthesia Provider: Shraddha Concepcion Pathology: ascending colon polyp x2 sigmoid colon polyp x1 Complications: None Condition: Good Free Text/Narrative:: see dictation #[id number]
--- NOTE | 2020-09-01 10:06 | OR ---
DATE OF OPERATION: 09/01/2020 SURGEON: Michael Watson MD PROCEDURE PERFORMED: Colonoscopy with cold forceps and hot loop snare biopsy. PREOPERATIVE DIAGNOSIS: Personal history of colon polyps. POSTOPERATIVE DIAGNOSIS: Ascending colon polyps x2 and sigmoid polyp. INDICATIONS FOR PROCEDURE: This is a 60-year-old white male who presents for his 5-year followup scope. He was offered and accepted same. He has a personal history of colon polyps. DESCRIPTION OF OPERATION: After an excellent IV sedation was administered, digital rectal exam was performed. No marked abnormality was noted. Flexible colonoscope was inserted and advanced through the cecum without difficulty. The prep was adequate. There were some areas of liquid stool, but we were able to irrigate these spots and get in good view of the mucosa. The following findings were noted. In the ascending colon near the cecum, 2 hyperplastic-appearing lesions approximately 2 mm in size biopsied with cold biopsy forceps and submitted in 1 container. Transverse colon was unremarkable. Descending colon was unremarkable. Sigmoid, small pedunculated polyp, biopsied with hot loop snare and retrieved via the suction canister trap. Rectum and anus, unremarkable. The patient tolerated the procedure well, was taken to recovery room in good condition. /[id number] /MODL
[2020-09-01 10:20] VITALS: BP 105/73; PULSE 60
== END 2020-09-01 10:05 | disposition home or self-care (01) ==
LOC: FB.SDS 06:49
PROVIDERS: ATTEND Surgery
DX: Z12.11 Encounter for screening for malignant neoplasm of colon (principal); D12.5 Benign neoplasm of sigmoid colon; D12.2 Benign neoplasm of ascending colon; I10 Essential (primary) hypertension; E78.2 Mixed hyperlipidemia; I25.10 Atherosclerotic heart disease of native coronary artery without angina pectoris; I25.2 Old myocardial infarction; J44.9 Chronic obstructive pulmonary disease, unspecified; E11.51 Type 2 diabetes mellitus with diabetic peripheral angiopathy without gangrene; Z98.890 Other specified postprocedural states; Z79.899 Other long term (current) drug therapy; Z79.82 Long term (current) use of aspirin; Z88.0 Allergy status to penicillin; Z88.8 Allergy status to other drugs, medicaments and biological substances
CPT/HCPCS: 45380; 45385; 82962; 88305; J2250; J2704; J7120; 00811-QZ

== ENCOUNTER 2021-06-06 18:47 | Emergency (ER) | payer OTHER ==
[2021-06-06] MEDS ORDERED: Lidocaine 2% 20 ML MDV INFILT ONE (18:48)
--- NOTE | 2021-06-06 18:51 | EDM.PDOC ---
ED HPI GENERAL MEDICAL PROBLEM - General Stated Complaint: RT HAND LACERATION Time Seen by Provider: 06/06/21 18:49 Source of Information: Reports: Patient History Limitations: Reports: No Limitations - History of Present Illness INITIAL COMMENTS - FREE TEXT/NARRATIVE: CUT to the left index while gutting a deer. - Related Data Allergies Allergy/AdvReac Type Severity Reaction Status Date / Time budesonide Allergy Rash Verified 09/01/20 07:53 lisinopril Allergy Rash Verified 09/01/20 07:53 Penicillins Allergy Chest Verified 09/01/20 07:53 Presssure Home Meds: Home Meds Aspirin [[place] Aspirin] 81 mg PO DAILY 07/13/13 [History] Metoprolol Tartrate 50 mg PO BID 10/15/14 [History] Acetaminophen [Tylenol Extra Strength] 1,000 mg PO Q4HR PRN 09/11/18 [History] Isosorbide Mononitrate [Imdur] 90 mg PO DAILY 06/21/20 [History] Rosuvastatin [Crestor] 40 mg PO DAILY 06/21/20 [History] metFORMIN [Glucophage] 500 mg PO BID #0 06/22/20 [Rx] Nitroglycerin [Nitrostat] 0.4 mg SL ASDIRECTED PRN 08/28/20 [History] Triamcinolone Acetonide [Kenalog 0.1% Crm] 1 applic TOP BID PRN 08/28/20 [History] Past Medical History HEENT History: Reports: Impaired Vision Cardiovascular History: Reports: Heart Murmur, High Cholesterol, Hypertension, [place], Prior Cardiac Arrest, PVD, Stents, Other (See Below) Other Cardiovascular History: CORONARY ATHEROSCLEROSIS Respiratory History: Reports: COPD, Pneumonia, Recurrent Gastrointestinal History: Reports: None Genitourinary History: Reports: None Musculoskeletal History: Reports: Arthritis, Back Pain, Chronic, Gout Other Musculoskeletal History: hx R hand fx, CHONDROMALACIA OF RIGHT KNEE, CERVICAL RADICULOPATHY, CARPAL TUNNEL SYNDROME RIGHT HAND Neurological History: Reports: Migraines Psychiatric History: Reports: ADHD Endocrine/Metabolic History: Reports: Diabetes, Type II, Obesity/BMI 30+ Hematologic History: Reports: None Immunologic History: Reports: None Oncologic (Cancer) History: Reports: None Dermatologic History: Reports: None - Infectious Disease History Infectious Disease History: Reports: Chicken Pox - Past Surgical History HEENT Surgical History: Reports: Oral Surgery Cardiovascular Surgical History: Reports: Coronary Artery Stent, Percutaneous Transluminal Angioplasty Other Cardiovascular Surgeries/Procedures: ANGIOGRAM, BALLOON ANGIOPLASTY Respiratory Surgical History: Reports: None GI Surgical History: Reports: Colonoscopy Female Surgical History: Reports: None Male Surgical History: Reports: None Endocrine Surgical History: Reports: None Neurological Surgical History: Reports: None Musculoskeletal Surgical History: Reports: Arthroscopic Knee, Shoulder Surgery Other Musculoskeletal Surgeries/Procedures:: R knee scope, L shoulder x 2, R shoulder x 1, LEFT ROTATOR CUFF REPAIR Oncologic Surgical History: Reports: None Dermatological Surgical History: Reports: None Social & Family History - Family History Family Medical History: No Pertinent Family History - Caffeine Use Caffeine Use: Reports: Coffee - Living Situation & Occupation 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 ED EXAM, GENERAL - Physical Exam Exam: See Below Exam Limited By: No Limitations General Appearance: Alert Extremities: Other (3 CM laceration,left index,at the MCP joint area) Neurological: Alert, CN II-XII Intact ED TRAUMA EXTREMITY PROCEDURES - Laceration/Wound Repair Left Dorsal Digit - 2nd (Index) Appearance: Superficial, Mildly Contaminated Distal NVT: Neuro & Vascular Intact Anesthetic Type: Local Local Anesthesia - Lidocaine (Xylocaine): 2% Plain Local Anesthetic Volume: 5cc Skin Prep: Chlorhexidine (Hibiciens) Exploration/Debridement/Repair: Wound Explored, No Foreign Material Found Closed With: Sutures Suture Size: 3-0 Suture Type: Silk Drain Placement: No Sterile Dressing Applied: Nurse Tetanus Status Addressed: Yes Complications: No Departure - Departure Time of Disposition: 19:00 Disposition: Home, Self-Care 01 Condition: Good Clinical Impression: Laceration of finger Qualifiers: Encounter type: initial encounter Finger: index finger Damage to nail status: with damage - Discharge Information - Problem List & Annotations (1) Laceration of finger SNOMED Code(s): 736062020 Code(s): S61.219A - LACERATION W/O FB OF UNSP FINGER W/O DAMAGE TO NAIL, INIT Status: Acute Qualifiers: Encounter type: initial encounter Finger: index finger Damage to nail status: with damage - Problem List Review Problem List Initiated/Reviewed/Updated: Yes - Assessment/Plan Plan: Tetanus given. DC home. Remove sutures in 1 week
[2021-06-06 22:29] VITALS: BP 132/88; PULSE 94
== END 2021-06-06 19:24 | disposition home or self-care (01) ==
LOC: FB.ED 18:47
DX: S61.210A Laceration without foreign body of right index finger without damage to nail, initial encounter (principal); E78.00 Pure hypercholesterolemia, unspecified; I10 Essential (primary) hypertension; I25.2 Old myocardial infarction; E11.9 Type 2 diabetes mellitus without complications; J44.9 Chronic obstructive pulmonary disease, unspecified; E66.9 Obesity, unspecified; Z68.36 Body mass index [BMI] 36.0-36.9, adult; Z95.5 Presence of coronary angioplasty implant and graft; Z88.0 Allergy status to penicillin; Z88.8 Allergy status to other drugs, medicaments and biological substances; W26.8XXA Contact with other sharp object(s), not elsewhere classified, initial encounter
CPT/HCPCS: 12002; 99282-25

== ENCOUNTER 2021-10-16 16:47 | Emergency (ER) | payer OTHER ==
[2021-10-16 17:41] VITALS: BP 180/84; PULSE 78
== END 2021-10-16 18:04 | disposition home or self-care (01) ==
LOC: FB.ED 16:47
DX: I25.10 Atherosclerotic heart disease of native coronary artery without angina pectoris (principal); E78.00 Pure hypercholesterolemia, unspecified; I10 Essential (primary) hypertension; I25.2 Old myocardial infarction; J44.9 Chronic obstructive pulmonary disease, unspecified; E11.9 Type 2 diabetes mellitus without complications; E78.5 Hyperlipidemia, unspecified; E66.9 Obesity, unspecified; Z88.0 Allergy status to penicillin; Z88.8 Allergy status to other drugs, medicaments and biological substances; Z79.82 Long term (current) use of aspirin; Z79.899 Other long term (current) drug therapy; Z79.84 Long term (current) use of oral hypoglycemic drugs; Z68.37 Body mass index [BMI] 37.0-37.9, adult
CPT/HCPCS: 36415; 80053; 83880; 84484; 85025; 93005; 93010; 99282; 99285-25

== ENCOUNTER 2022-07-26 05:04 | Emergency (ER) | payer OTHER ==
[2022-07-26] MEDS ORDERED: Albuterol/Ipratropium 3.0-0.5 MG/3 ML Neb Soln NEB ONE ×2 (05:34→06:42)
[2022-07-26] MEDS ORDERED: Aspirin 81 MG Tab.Chew PO ONE (06:08)
[2022-07-26 06:26] LABS: ESTIMATED GFR 97 mL/min (>60)
[2022-07-26] MEDS ORDERED: methylPREDNISolone Sodium Succinate 125 MG/2 ML SDV IVPUSH ONE (06:41)
[2022-07-26] MEDS ORDERED: Azithromycin 500 MG in Sodium Chloride 0.9% 250 ML IV ONE (06:41)
[2022-07-26 07:05] LABS: CORONAVIRUS COVID-19 NAA NEGATIVE (NEGATIVE)
[2022-07-26 07:39] VITALS: BP 134/76; PULSE 83
== END 2022-07-26 08:21 | disposition home or self-care (01) ==
LOC: FB.ED 05:04
DX: J44.1 Chronic obstructive pulmonary disease with (acute) exacerbation (principal); R07.81 Pleurodynia; B34.9 Viral infection, unspecified; E78.00 Pure hypercholesterolemia, unspecified; I10 Essential (primary) hypertension; E11.9 Type 2 diabetes mellitus without complications; I25.2 Old myocardial infarction; E66.9 Obesity, unspecified; Z68.36 Body mass index [BMI] 36.0-36.9, adult; Z88.0 Allergy status to penicillin; Z88.8 Allergy status to other drugs, medicaments and biological substances; Z79.82 Long term (current) use of aspirin; Z79.84 Long term (current) use of oral hypoglycemic drugs; Z79.899 Other long term (current) drug therapy; Z20.822 Contact with and (suspected) exposure to COVID-19
CPT/HCPCS: 0241U; 36415; 71046; 80053; 84484; 85025; 93005; 94640; 96365; 96375; 99285; A9270; J0456; J2930; J7050; J7620

== ENCOUNTER 2024-08-07 17:40 | Emergency (ER) | payer OTHER ==
[2024-08-07] MEDS ORDERED: Acetaminophen/HYDROcodone 325-5 MG Tab PO ONE (17:41)
[2024-08-07 17:56] VITALS: BP 148/77; PULSE 60
[2024-08-07] MEDS: Ketorolac 30 MG/ML SDV IVPUSH ONE (18:13)
[2024-08-07 18:15] LABS: BASOPHILS ABSOLUTE AUTO 0.1 x10-3/uL (0.0-0.3); BASOPHILS PERCENT AUTO 0.9 % (0.3-3.8); EOSINOPHILS ABSOLUTE AUTO 0.4 x10-3/uL (0.0-0.6); HEMATOCRIT 42.4 % (38.3-50.1); HEMOGLOBIN 14.3 g/dL (12.9-17.7); LYMPHOCYTES PERCENT AUTO 22.5 % (15.8-45.3); MEAN CORPUSCULAR HEMOGLOBIN 29.4 pg (27.0-33.3); MEAN CORPUSCULAR HGB CONC 33.7 g/dL (28.7-35.3); MEAN PLATELET VOLUME 8.3 fL (6.7-11.0); MONOCYTES ABSOLUTE AUTO 0.8 x10-3/uL (0.0-1.2); MONOCYTES PERCENT AUTO 8.6 % (5.5-15.2); NEUTROPHILS ABSOLUTE AUTO 5.6 x10-3/uL (1.7-6.9); PLATELET COUNT,PLT 198 x10(3)uL (117-477); RED BLOOD CELL COUNT 4.88 x10(6)uL (3.90-5.90); RED CELL DISTRIBUTION WIDTH 13.8 % (12.4-15.0); WHITE BLOOD CELL COUNT,WBC 8.8 x10-3/uL (3.2-10.1)
[2024-08-07 18:21] LABS: BLOOD UREA NITROGEN,BUN 10 mg/dL (7-18); BUN/CREATININE RATIO 12.5 (9-20); CALCIUM 8.8 mg/dL (8.6-10.2); CARBON DIOXIDE,CO2 26 mmol/L (21-32); CHLORIDE,CL 107 mmol/L (100-110); CREATININE 0.8 mg/dL (0.70-1.30); EST CRCL DRUG DOSING (CG) 90.25 mL/min; ESTIMATED GFR 99 mL/min (>60); GLUCOSE RANDOM 106 mg/dL (80-116); POTASSIUM,K 3.7 mmol/L (3.5-5.3); SODIUM,NA 144 mmol/L (135-145)
[2024-08-07 18:23] LABS: INR 0.95 (1.00-1.24); PROTHROMBIN TIME 9.9 sec (9.0-11.1)
[2024-08-07 18:26] LABS: PTT,PARTIAL THROMBOPLSTIN TIME 23.2 SECONDS (24.4-33.2)
[2024-08-07 18:27] LABS: A/G RATIO 1.5; ALANINE AMINOTRANSFERASE,ALT 20 U/L (12-36); ALBUMIN 3.9 g/dL (3.2-4.6); ALKALINE PHOSPHATASE 94 IU/L (56-112); ASPARTATE AMNIOTRANSFERASE,AST 18 IU/L (5-25); BILIRUBIN TOTAL 0.6 mg/dL (0.1-1.3); PROTEIN TOTAL,TP 6.5 g/dL (6.0-8.0)
[2024-08-07] MEDS: HYDROmorphone 2 MG/ML SDV IVPUSH ONE (18:27)
[2024-08-07] MEDS: Iopamidol 755 Mg/ML 100 ML Bottle IV STA (18:52)
== END 2024-08-07 20:10 | disposition home or self-care (01) ==
LOC: FB.ED 17:40
DX: S22.41XA Multiple fractures of ribs, right side, initial encounter for closed fracture (principal); K80.20 Calculus of gallbladder without cholecystitis without obstruction; I25.2 Old myocardial infarction; I10 Essential (primary) hypertension; E78.00 Pure hypercholesterolemia, unspecified; J44.9 Chronic obstructive pulmonary disease, unspecified; M19.90 Unspecified osteoarthritis, unspecified site; E11.9 Type 2 diabetes mellitus without complications; E66.9 Obesity, unspecified; Z68.31 Body mass index [BMI] 31.0-31.9, adult; Z88.0 Allergy status to penicillin; Z88.8 Allergy status to other drugs, medicaments and biological substances; Z79.82 Long term (current) use of aspirin; Z79.84 Long term (current) use of oral hypoglycemic drugs; Z79.52 Long term (current) use of systemic steroids; Z79.899 Other long term (current) drug therapy; W00.0XXA Fall on same level due to ice and snow, initial encounter
CPT/HCPCS: 71045; 71260; 80053; 84484; 85025; 85610; 85730; 93005; 96374; 96375; 99284; A9270; J1171; J1885; Q9967

== ENCOUNTER 2025-02-16 11:15 | Emergency (ER) | payer OTHER ==
[2025-02-16] MEDS: Ketorolac 30 MG/ML SDV IM ONE (12:15)
[2025-02-16 13:43] VITALS: BP 132/70; PULSE 60
== END 2025-02-16 13:43 | disposition home or self-care (01) ==
LOC: FB.ED 11:15
DX: M67.921 Unspecified disorder of synovium and tendon, right upper arm (principal); I10 Essential (primary) hypertension; E78.00 Pure hypercholesterolemia, unspecified; E11.9 Type 2 diabetes mellitus without complications; Z88.0 Allergy status to penicillin; Z88.8 Allergy status to other drugs, medicaments and biological substances; Z79.899 Other long term (current) drug therapy; Z79.82 Long term (current) use of aspirin; Z79.84 Long term (current) use of oral hypoglycemic drugs
CPT/HCPCS: 73200; 96372; 99283; J1885

== ENCOUNTER 2025-03-12 07:41 | Day surgery (SDC) | payer OTHER ==
[2025-03-12] MEDS ORDERED: Midazolam 1 MG/ML 2 ML SDV IV ONE (07:42)
[2025-03-12] MEDS ORDERED: Propofol 200 MG/20 ML SDV IV ONE (07:42)
[2025-03-12] MEDS ORDERED: fentaNYL 100 MCG/2 ML SDV IV ONE (07:42)
[2025-03-12] MEDS ORDERED: Sodium Chloride 0.9% 10 ML Syringe FLUSH PRN (07:45)
[2025-03-12] MEDS: Lactated Ringers 1,000 ML IV SCH (08:25)
[2025-03-12 09:51] VITALS: BP 133/76; PULSE 59
== END 2025-03-12 09:56 | disposition home or self-care (01) ==
LOC: FB.SDS 07:41
PROVIDERS: ATTEND Surgery
DX: Z12.11 Encounter for screening for malignant neoplasm of colon (principal); K52.9 Noninfective gastroenteritis and colitis, unspecified; R19.5 Other fecal abnormalities; E11.9 Type 2 diabetes mellitus without complications; I25.10 Atherosclerotic heart disease of native coronary artery without angina pectoris; I10 Essential (primary) hypertension; Z88.0 Allergy status to penicillin; Z88.8 Allergy status to other drugs, medicaments and biological substances; Z91.09 Other allergy status, other than to drugs and biological substances; Z87.891 Personal history of nicotine dependence; Z79.84 Long term (current) use of oral hypoglycemic drugs; Z79.82 Long term (current) use of aspirin; Z79.899 Other long term (current) drug therapy; Z86.0101 Personal history of adenomatous and serrated colon polyps
CPT/HCPCS: 00811; 45380; 88305; A9270; J2250; J2704; J3010; J7120